=== PATIENT | male | born 1980 | race African-American/Black ===

== ENCOUNTER 2018-08-21 20:02 | Emergency (ER) | payer OTHER, BC ==
[2018-08-21 20:50] VITALS: BP 116/73; PULSE 79; TEMP 98; BMI 26.6
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
[2018-08-21] MEDS ORDERED: IBUPROFEN 400 MG TABLET (FP) PO ONE ×2 (22:17→22:18)
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
== END 2018-08-21 23:03 | disposition home or self-care (01) ==
LOC: JERFT 20:02
DX: M54.5 Low back pain (principal); V43.52XA Car driver injured in collision with other type car in traffic accident, initial encounter; Y92.414 Local residential or business street as the place of occurrence of the external cause; Y93.89 Activity, other specified; Y99.8 Other external cause status
CPT/HCPCS: 73030-TC-LT-FY; 99281-25

== ENCOUNTER 2018-09-18 17:52 | Emergency (ER) | payer SELFPAY ==
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
[2018-09-18 18:05] VITALS: BP 122/80; PULSE 102; TEMP 98.5; BMI 27.3
[2018-09-18] MEDS ORDERED: AZITHROMYCIN 250 MG TABLET PO ONE ×2 (18:44→18:58)
--- NOTE | 2018-09-18 18:57 | PDOC ---
History of Present Illness - General Chief Complaint: Back Pain Stated Complaint: BACK PAIN Time Seen by Provider: 09/18/18 17:57 History Source: Patient Exam Limitations: No Limitations - History of Present Illness Initial Comments: 09/18/18 18:52 HISTORY OF PRESENT ILLNESS: Social 37-year-old male presents emergency department for evaluation of ST. Patient states he was with a female partner one week ago and had unprotected vaginal sex. Patient states 2 days later began to experience pain does urethral meatus and today developed a milky white discharge. Patient denies fevers, chills, testicular pain. No recent travel or sick contacts. PAST MEDICAL HISTORY: Denies past medical history SURGICAL HISTORY: Denies ALLERGIES: No known drug allergies REVIEW OF SYSTEMS General/Constitutional: Denies fever or chills. Denies weakness, weight change. HEENT: Denies change in vision. Denies ear pain or discharge. Denies sore throat. Cardiovascular: Denies chest pain or shortness of breath. Respiratory: Denies cough, wheezing, or hemoptysis. Gastrointestinal: Denies nausea, vomiting, diarrhea or constipation. Denies rectal bleeding. Genitourinary: Denies dysuria, frequency, or change in urination. Penile discharge. Musculoskeletal: Denies joint or muscle swelling or pain. Denies neck or back pain. Skin and breasts: Denies rash or easy bruising. Neurologic: Denies headache, vertigo, loss of consciousness, or loss of sensation. Psychiatric: Denies depression or anxiety. Endocrine: Denies increased thirst. Denies abnormal weight change. Hematologic/Lymphatic: Denies anemia, easy bleeding, or history of blood clots. Allergic/Immunologic: Denies hives or skin allergy. Denies latex allergy. PHYSICAL EXAM General Appearance: Well-appearing, appropriately dressed. No apparent distress , no intoxication. HEENT: EOMI, PERRLA, normal ENT inspection, normal voice, TMs normal, pharynx normal. No conjunctival pallor. No photophobia, scleral icterus. Neck: Supple. Trachea midline. No tenderness, rigidity, carotid bruit, stridor , lymphadenopathy, or thyromegaly. Respiratory/Chest: Lungs CTAB. No shortness of breath, chest tenderness, respiratory distress, accessory muscle use. No crackles, rales, rhonchi, stridor , wheezing, dullness Cardiovascular: RRR. S1, S2. No JVD, murmur, bradycardia, tachycardia. Vascular Pulses: Dorsalis-Pedis (R): 2+, Dorsalis-Pedis (L): 2+ Gastrointestinal/Abdominal: Normal bowel sounds. Abdomen soft, non-distended. No tenderness or rebound tenderness. No organomegaly, pulsatile mass, guarding, hernia, hepatomegaly, splenomegaly. Lymphatic: No adenopathy, tenderness. Musculoskeletal/Extremities: Normal inspection. FROM of all extremities, normal capillary refill. Pelvis Stable. No CVA tenderness. No tenderness to extremities, pedal edema, swelling, erythema or deformity. : Circumcised penis. Thick yellow discharge from urethral meatus. No tenderness to shaft of penis.Testicular exam is WNL. Integumentary: Appropriate color, dry, warm. No cyanosis, erythema, jaundice or rash Neurologic: map colorer II-XII intact. Fully oriented, alert. Appropriate mood/affect. Motor strength 5/5. No appreciable EOM palsy, facial droop or sensory deficit. Past History - Past Medical History Allergies/Adverse Reactions: Allergies Allergy/AdvReac Type Severity Reaction Status Date / Time No Known Allergies Allergy Verified 09/18/18 17:57 Home Medications: Ambulatory Orders NK [No Known Home Medication] 08/21/18 COPD: No - Immunization History Immunization Up to Date: Yes - Suicide/Smoking/Psychosocial Hx Smoking History: Current every day smoker Number of Cigarettes Smoked Daily: 10 Information on smoking cessation initiated: No Hx Alcohol Use: No Drug/Substance Use Hx: No Substance Use Type: None *Physical Exam - Vital Signs Last Vital Signs Temp Pulse Resp BP Pulse Ox 98.5 F 102 H 16 122/80 97 09/18/18 17:57 09/18/18 17:57 09/18/18 17:57 09/18/18 17:57 09/18/18 17:57 Medical Decision Making - Medical Decision Making 09/18/18 18:52 A/P: 37-year-old male for evaluation of penile discharge after unprotected intercourse note Thick yellow discharge noted at the urethral meatus. Testicular exam is within normal limits No tenderness to glands, shaft of penis. GC culture, Zithromax, ceftriaxone, discharge Patient educated to have conversation with his partners to make sure they have evaluation and potential treatment. Patient verbalizes understanding of discharge instructions and need to have partners tested and possibly treated. I discussed the physical exam findings, ancillary test results and final diagnoses with the patient. I answered all of the patient's questions. The patient was satisfied with the care received and felt comfortable with the discharge plan and treatment plan. The patient will call their primary care physician within 24 hours to arrange follow-up and will return to the Emergency Department with any new, persistent or worsening symptoms. *DC/Admit/Observation/Transfer Diagnosis at time of Disposition: Screening for STDs (sexually transmitted diseases) - Discharge Dispostion Disposition: HOME Condition at time of disposition: Stable Decision to Admit order: No - Referrals Referrals: Yvan De Leon MD [Primary Care Provider] - - Patient Instructions Additional Instructions: You been treated today with azithromycin 1 g by mouth for treatment of presumed chlamydia You have been treated with Rocephin 250 mg injection for treatment of presumed gonorrhea The syphilis test, gonorrhea and chlamydia testing will not be completed for the next few days. You may call and leave message for return phone call with lab results. Be sure to be clear with your name, birthdate, and phone number Always use condoms with the partners Followup with [facility] TECHNICIAN or PMD in one week for reevaluation and retesting. - Post Discharge Activity
== END 2018-09-18 18:56 | disposition home or self-care (01) ==
LOC: JERFT 17:52
DX: R36.9 Urethral discharge, unspecified (principal); Z11.3 Encounter for screening for infections with a predominantly sexual mode of transmission
CPT/HCPCS: 36415; 87081; 87491; 87591; 87661; 99281-25

== ENCOUNTER 2019-04-05 11:27 | Emergency (ER) | payer BC, OTHER | END 2019-04-05 15:40 | disposition home or self-care (01) | LOC: JER 11:27 ==

== ENCOUNTER 2020-06-11 05:57 | Emergency (ER) | payer BC ==
[2020-06-11 06:25] VITALS: BMI 26.6
[2020-06-11 07:12] LABS: EPI CELLS 23 /uL (0-25.1); HYALINE CASTS 0 /uL (0-3.1); PH,URINE 5.5 (5.0-8.0); URINE APPEARANCE CLEAR; URINE BACTERIA 301 /uL (0-1359); URINE BILIRUBIN NEGATIVE (NEGATIVE); URINE COLOR YELLOW; URINE GLUCOSE (UA) NEGATIVE (NEGATIVE); URINE KETONE NEGATIVE (NEGATIVE); URINE LEUK ESTERASE TRACE (NEGATIVE); URINE NITRITE NEGATIVE (NEGATIVE); URINE PROTEIN NEGATIVE (NEGATIVE); URINE RBC 1 /uL (0-23.9); URINE UROBILINOGEN 0.2 mg/dL (0.2-1.0); URINE WBC 14 /uL (0-25.8)
--- NOTE | 2020-06-11 07:22 | PDOC ---
History of Present Illness - General Chief Complaint: Penile Drainage Stated Complaint: STD CHECK Time Seen by Provider: 06/11/20 07:12 History Source: Patient Exam Limitations: No Limitations - History of Present Illness Initial Comments: Tucker is a 39 yo M w a hx of multiple STD's who presents to the ER for STD evaluation. States it has been burning when he urinates and clear discharge has been exuding from the tip of his penis. He endorses having unprotected sex with multiple "high risk" partners and says whenever he sees the clear discharge he knows it is time to be evaluated. States he would also like to be tested for HIV and syphillis. Patient denies yellow frothy discharge and denies white penile discharge. Denies IVDU but endorses smoking blunts of marijuana daily. PCP: Yvan De Leon PSH: None reported Allergies: NKA, NKDA Social Hx: Smokes marijuana daily, smokes cigarettes when intoxicated, drinks multiple times a week Past History - Medical History Allergies/Adverse Reactions: Allergies Allergy/AdvReac Type Severity Reaction Status Date / Time No Known Allergies Allergy Verified 06/11/20 06:10 Home Medications: Ambulatory Orders NK [No Known Home Medication] 06/11/20 COPD: No - Immunization History Immunization Up to Date: Yes - Psycho-Social/Smoking History Smoking History: Current every day smoker Number of Cigarettes Smoked Daily: 10 Information on smoking cessation initiated: Yes - Substance Abuse Hx (Audit-C & DAST Scrn) How often the patient has a drink containing alcohol: 2-4 times / month Score: In Men: 4 or > Positive; In Women: 3 or > Positive: 2 Screen Result (Pos requires Nsg. Audit-10AR): Negative Review of Systems - Review of Systems Able to Perform ROS?: Yes Comments:: CONSTITUTIONAL: Absent: fever, no chills, no fatigue EYES: Absent: visual changes ENT: Absent: ear pain, no sore throat CARDIOVASCULAR: Absent: chest pain, no palpitations RESPIRATORY: Absent: cough, no SOB GI: Absent: abdominal pain, no nausea, no vomiting, no constipation, no diarrhea GENITOURINARY: Present: Dysuria Absent: no frequency, no hematuria MUSKULOSKELETAL: Absent: back pain, no arthralgia, no myalgia SKIN: Absent: rash NEURO: Absent: headache *Physical Exam - Vital Signs Last Vital Signs Temp Pulse Resp BP Pulse Ox 97.8 F 91 H 18 120/82 100 06/11/20 06:12 06/11/20 06:12 06/11/20 06:12 06/11/20 06:12 06/11/20 06:12 - Physical Exam GENITOURINARY: There is clear discharge exuding from the tip of the urethral meatus. There are no ulcers or warts. There is no testicular tenderness. No testicular rashes. GENERAL: Well-appearing, well-nourished. No apparent distress. HEENT: Normocephalic, atraumatic. PERRL, EOM intact. CARDIOVASCULAR: Normal S1, S2. Regular rate and rhythm. PULMONARY: No evidence of respiratory distress. Lungs clear to auscultation bilaterally. No wheezing, rales or rhonchi. ABDOMEN: Soft, non-distended, non-tender. EXTREMITIES: Normal ROM in all four extremities. No gross deformities. SKIN: Warm, dry. No rash NEUROLOGICAL: No focal neurological deficits. ED Treatment Course - ADDITIONAL ORDERS Additional order review: Laboratory Results 06/11/20 06:30 Urine Color Yellow Urine Appearance Clear Urine pH 5.5 Ur Specific [place] 1.002 L Urine Protein Negative Urine Glucose (UA) Negative Urine Ketones Negative Urine Blood Negative Urine Nitrite Negative Urine Bilirubin Negative Urine Urobilinogen 0.2 Ur Leukocyte Esterase Trace Urine WBC (Auto) 14 Urine RBC (Auto) 1 Urine Casts (Auto) 0 U Epithel Cells (Auto) 23 Urine Bacteria (Auto) 301 Medical Decision Making - Medical Decision Making Tucker is a 39 yo M w a hx of multiple STD's who presents to the ER for STD evaluation. States it has been burning when he urinates and clear discharge has been exuding from the tip of his penis. He endorses having unprotected sex with multiple "high risk" partners and says whenever he sees the clear discharge he knows it is time to be evaluated. States he would also like to be tested for HIV and syphillis. Patient denies yellow frothy discharge and denies white penile discharge. Denies IVDU but endorses smoking blunts of marijuana daily. Vital Signs Temp Pulse Resp BP Pulse Ox 97.8 F 91 H 18 120/82 100 06/11/20 06:12 06/11/20 06:12 06/11/20 06:12 06/11/20 06:12 06/11/20 06:12 DDx IBNLT: Chlamydia, gonorrhea, HIV, syphillis, Trichomonas, UTI/STD Plan: HIV, rpr, ua, uc, GC/CT, empiric Abx MDM: Patient has clear discharge concerning for chlamydia. Will empirically treat with ceftriaxone and azithro. I have informed patient all his partners need Abx treatment as well and he should not engage in sexual activities until he has completed his course of Abx. UA: Sterille pyuria concerning and consistent with chlamydia The patient appears clinically sober, has no evidence of clinical intoxication, is A&O x4, has no sustained nystagmus, and appears to be capable and have capacity to make reasonable decisions. The patient states they are currently in the emergency department, knows who the president is, states the correct time, correct day, and correct month. The patient is ambulatory in ER and has walked around the nursing station multiple times with a straight and steady gait, and is not ataxic. Tolerating PO well, ate a sandwich and drank juice. Denies having any SI or HI. Patient states will not be driving home. I discussed the physical exam findings, ancillary test results and final diagnoses with the patient. I answered all of the patient's questions. The patient was satisfied with the care received and felt comfortable with the discharge plan and treatment plan. The patient will call their primary care physician within 24 hours to arrange follow-up and will return to the Emergency Department with any new, persistent or worsening symptoms. Dispo: Home with PCP fu patient will receive call back regarding GC/CT Please note, this clinical encounter is taking place during a federal and state health care emergency attributable to the novel Lantigua Virus pandemic. The Development Technologist of the Department of Health and Human Services has declared, pursuant to the Public Health Service Act 319F-3 (42 U.S.C. 247d-6d), that a covered persons activities related to medical countermeasures against COVID-19 will be immune from liability under Federal and State law. Discharge - Discharge Information Problems reviewed: Yes Clinical Impression/Diagnosis: Chlamydia Condition: Stable Disposition: HOME - Admission No - Follow up/Referral Referrals: Yvan De Leon MD [Primary Care Provider] - - Patient Discharge Instructions Patient Printed Discharge Instructions: DI for HIV, Chlamydia: The Silent STD, DI for Chlamydia Additional Instructions: You came into the ER for STD testing. We believe you have chlamydia. We have given you antibiotics in the ED. Please do not engage in sexual activity for the next 10 days. All of your recent sexual partners need to be treated for an STD as well. Please remember to wear condoms next time you engage in high risk sexual activities. You must return to the Emergency Department with any new complaints, if your symptoms persist and do not improve or if you develop any other new or worsening concerns. You can take over the counter Tylenol or Advil as needed for pain. Take as directed on the package insert. Do not exceed the recommended dosage. As discussed, please call to follow up with your Primary Care physician in 1-2 days to discuss what happened to you in the emergency room, and make sure you are being looked after and taken care of. Your emergency room visit is not complete without this follow up appointment. Please read the attached handouts for further information about your ER visit and what you should do moving forward. Thank you for coming to the [facility]. We hope you feel better soon! Print Language: LITHUANIAN - Post Discharge Activity
[2020-06-11] MEDS ORDERED: AZITHROMYCIN 500 MG TABLET PO ONE (07:24)
--- NOTE | 2020-06-11 07:33 | PDOC ---
Attending Attestation - Resident Resident Name: Willard Santiago - HPI HPI: 06/11/20 07:46 pt presents to the ED complaining of clear penile discharge after unprotected sex. Denies fevers, testicular pain or rashes. - Physicial Exam PE: 06/11/20 07:47 Agree with resident exam. Patient is well appearing and in no acute distress. Genital exam as per resident. - Medical Decision Making 06/11/20 07:48 Pt presents to the ED complaining of clear penile discharge after unprotected sex. Consistent with Gonnorhea or Chlamydial urethritis, but no signs or symptoms consistent with epididymitis. Will treat with zithromax and ceftriaxone and test for HIV and syphillis. Patient advised to avoid intercourse for 14 days. Discharge - Discharge Information Problems reviewed: Yes Clinical Impression/Diagnosis: Chlamydia Condition: Good Disposition: HOME - Follow up/Referral Referrals: Yvan De Leon MD [Primary Care Provider] - - Patient Discharge Instructions Patient Printed Discharge Instructions: Chlamydia: The Silent STD, DI for Chlamydia, DI for HIV Additional Instructions: You came into the ER for STD testing. We believe you have chlamydia. We have given you antibiotics in the ED. Please do not engage in sexual activity for the next 10 days. All of your recent sexual partners need to be treated for an STD as well. Please remember to wear condoms next time you engage in high risk sexual activities. You must return to the Emergency Department with any new complaints, if your symptoms persist and do not improve or if you develop any other new or worsening concerns. You can take over the counter Tylenol or Advil as needed for pain. Take as directed on the package insert. Do not exceed the recommended dosage. As discussed, please call to follow up with your Primary Care physician in 1-2 days to discuss what happened to you in the emergency room, and make sure you are being looked after and taken care of. Your emergency room visit is not complete without this follow up appointment. Please read the attached handouts for further information about your ER visit and what you should do moving forward. Thank you for coming to the [facility]. We hope you feel better soon! Print Language: ERITREAN - Post Discharge Activity
[2020-06-11] MEDS ORDERED: LIDOCAINE HCL 1%, 10 MG/ML (20ML VIAL) ONE (07:35)
[2020-06-11] MEDS ORDERED: AZITHROMYCIN 250 MG TABLET ONE (07:35)
[2020-06-11 07:50] VITALS: TEMP 97.1
[2020-06-11 08:23] VITALS: BP 105/78; PULSE 65
== END 2020-06-11 08:44 | disposition home or self-care (01) ==
LOC: JER 05:57
PROC: 3E0234Z Introduction of Serum, Toxoid and Vaccine into Muscle, Percutaneous Approach (ICD-10-PCS; principal; 2020-06-11)
DX: A74.9 Chlamydial infection, unspecified (principal)
CPT/HCPCS: 36415; 81003; 86780; 87389; 87491; 87591; 99283-25